=== PATIENT | female | born 1940 | race African-American/Black ===

== ENCOUNTER 2021-06-20 15:35 | Emergency (ER) | payer OTHER ==
[~2021-06-20] VITALS: Ht 162.6 cm; Wt 61.2 kg
[2021-06-20 15:35] VITALS: BP_SYST 204
--- NOTE | 2021-06-20 15:35 | NUR ---
Patient to ER bed 2 for evaluation. Side rails up. Report given to Daniele PIMENTEL.
[2021-06-20] MEDS ORDERED: ENALAPRILAT DIHYDRATE 1.25 MG/ML VIAL IVP ONE (16:00)
[2021-06-20 16:38] LABS: ANION GAP 9 (5-15); CALCIUM 8.2 mg/dL (8.4-11.0); CHLORIDE 102 mmol/L (98-107); CREATININE 1.47 mg/dL (0.55-1.30); GLUCOSE 157 mg/dL (70-99); POTASSIUM 3.1 mmol/L (3.5-5.1); SODIUM SERUM 137 mmol/L (136-145); UREA NITROGEN, BLOOD 18 mg/dL (8-21)
[2021-06-20 16:41] LABS: HEMATOCRIT 28.1 % (36-48); MEAN CORPUSCULAR HEMOGLOBIN 23 pg (27-31); MEAN CORPUSCULAR HGB CONC 32 % (32-36); MEAN CORPUSCULAR VOLUME 72 fL (79.0-98.0); PLATELET COUNT (AUTO) 195 K/uL (130-430); RED BLOOD CELL COUNT(AUTO) 3.88 MIL/uL (4.2-6.2); WHITE BLOOD COUNT (AUTO) 13.3 K/uL (4.8-10.8)
[2021-06-20 16:42] LABS: ALANINE AMINOTRANSFERASE 16 U/L (12-78); ALBUMIN 3.2 g/dL (3.4-4.8); ASPARTATE AMINOTRANSFERASE 20 U/L (10-37); TOTAL BILIRUBIN 1.4 mg/dL (0.0-1.0)
--- NOTE | 2021-06-20 18:03 | NUR ---
In ER bed 2 BP elevated No neuro deficits Medicated as ordered
[2021-06-20 18:13] VITALS: BP_SYST 196
--- NOTE | 2021-06-20 18:14 | NUR ---
Stable No neuro deficits BP still elevated MD informed
[2021-06-20] MEDS ORDERED: hydrALAZINE HCL 20 MG/ML VIAL IVP ONE ×2 (18:15→19:00)
[2021-06-20 18:47] LABS: BAND % (MANUAL) 14 % (0-6); BASOPHILS % (MANUAL) 0 % (0-2); EOSINOPHILS % (MANUAL) 0 % (0-7); LYMPHOCYTES % (MANUAL) 4 % (20-46); MONOCYTES % (MANUAL) 1 % (0-11)
[2021-06-20] MEDS ORDERED: LISI1TAB57 PO (19:04)
[2021-06-20] MEDS ORDERED: AMLO2.5T2 PO (19:04)
--- NOTE | 2021-06-20 20:14 | NUR ---
Stable BP has improved MD has reassessed and Dc'd home To exit
== END 2021-06-20 20:12 | disposition home or self-care (01) ==
LOC: SED 15:35
DX: I10 Essential (primary) hypertension (principal); Z79.899 Other long term (current) drug therapy
CPT/HCPCS: 36415; 80053; 82962; 85007; 85027; 96374; 96375; 96376; 99285; J0360